=== PATIENT | female | born 1935 | race Native Hawaiian/Other Pacific Islander ===

== ENCOUNTER 2018-04-28 18:22 | Emergency (ER) | payer MEDICARE, OTHER ==
[2018-04-28 20:11] VITALS: RESP 18; O2SAT 100
[2018-04-28 20:19] LABS: BASO % 0.7 % (0.0-2.0); EOS # 0.2 K/uL (0.0-0.7); EOS % 3.2 % (0.0-4.0); HEMOGLOBIN 11.3 g/dL (12.0-16.0); LYMPH % 19.2 % (20.0-40.0); MEAN CELL VOLUME 91.2 fl (81.0-99.0); MEAN CORPUSCULAR HEMOGLOBIN 30.7 pg (27.0-31.0); MEAN CORPUSCULAR HGB CONC 33.7 g/dL (33.0-37.0); MEAN PLATELET VOLUME 8.4 fl (7.2-11.7); MONO # 0.5 K/uL (0.0-0.8); MONO % 9.7 % (0.0-10.0); NEUT # 3.4 K/uL (1.8-7.0); NEUT % 67.2 % (50.0-75.0); RBC 3.68 Mil/uL (3.80-5.20); RED CELL DISTRIBUTION WIDTH 12.8 % (11.5-14.5)
[2018-04-28 20:37] LABS: ALBUMIN 3.5 g/dL (3.5-5.0); ALT/SGPT 112 U/L (9-52); AST/SGOT 92 U/L (14-36); BLOOD UREA NITROGEN 16 mg/dl (7-17); CALCIUM 8.8 mg/dL (8.4-10.2); GFR NON-AFRICAN AMERICAN 53
--- NOTE | 2018-04-28 21:08 | ED PDOC ---
Syncope/Near Syncope/Dizziness Time Seen by Provider: 04/28/18 19:28 Chief Complaint (Nursing): Dizziness/Lightheaded Chief Complaint (Provider): Dizziness/Lightheaded History Per: Patient, Family History/Exam Limitations: no limitations Onset/Duration Of Symptoms: Hrs (3-4) Activity At Onset Of Symptoms: Standing Additional Complaint(s): 83 years old [place] female with history of hypertension and diabetes presents to ER for evaluation of dizziness onset 1 hour [employer]. Family report patient had an episode of unstable gait while [place] local [place]. They reports she became unsteady, favoring her left side. Family state that they sat patient down to rest but she still had some persistence of symptoms prompting ED visit. Patient denies any nausea, vomiting, headache, trouble speaking, focal weakness, chest pain or shortness of breath. PMD:Bill Valentino Past Medical History Reviewed: Historical Data, Nursing Documentation, Vital Signs Vital Signs: Last Vital Signs Temp 97.7 F 04/28/18 18:32 Pulse 65 04/28/18 20:10 Resp 18 04/28/18 20:10 BP 143/76 04/28/18 20:10 Pulse Ox 100 04/28/18 20:10 - Medical History PMH: Diabetes, HTN, Hypercholesterolemia Denies: HIV, Chronic Kidney Disease - Surgical History Surgical History: No Surg Hx - Family History Family History: States: Unknown Family Hx - Social History Current smoker - smoking cessation education provided: No Alcohol: None Drugs: Denies - Home Medications Home Medications: Ambulatory Orders Medication Instructions Recorded Alprazolam [Xanax] 0.25 mg PO Q12 #20 tab 06/10/15 Aspirin [Aspirin EC] 1 tab PO DAILY #0 ect 06/10/15 Atorvastatin [Lipitor] 1 tab PO DAILY #0 tab 06/10/15 Carvedilol [Coreg] 1 tab PO BID #0 tab 06/10/15 HCTZ/Losartan Potassium [Hyzaar 1 tab PO DAILY #0 tab 06/10/15 12.5 mg-50 mg] Lubiprostone [Amitiza] 1 cap PO BID #0 sgl 06/10/15 Metformin Hydrochloride [Metformin] 1 tab PO BID #0 tab 06/10/15 Nitroglycerin [Nitrostat] 1 tab SL PRN PRN #0 tab 06/10/15 - Allergies Allergies/Adverse Reactions: Allergies Allergy/AdvReac Type Severity Reaction Status Date / Time No Known Allergies Allergy Verified 06/09/15 00:52 Review of Systems ROS Statement: Except As Marked, All Systems Reviewed And Found Negative Cardiovascular: Negative for: Chest Pain Respiratory: Negative for: Shortness of Breath Gastrointestinal: Negative for: Nausea, Vomiting Neurological: Positive for: Dizziness (unsteady gait). Negative for: Weakness (focal), Headache Physical Exam - Reviewed Nursing Documentation Reviewed: Yes Vital Signs Reviewed: Yes - Physical Exam Appears: Positive for: Non-toxic, No Acute Distress Head Exam: Positive for: ATRAUMATIC, NORMOCEPHALIC Skin: Positive for: Normal Color, Warm, Dry Eye Exam: Positive for: Normal appearance, EOMI, PERRL Neck: Positive for: Normal, Painless ROM, Supple Cardiovascular/Chest: Positive for: Regular Rate, Rhythm. Negative for: Murmur Respiratory: Positive for: Normal Breath Sounds. Negative for: Wheezing Gastrointestinal/Abdominal: Positive for: Normal Exam, Soft. Negative for: Tenderness Back: Positive for: Normal Inspection. Negative for: L CVA Tenderness, R CVA Tenderness Extremity: Positive for: Normal ROM. Negative for: Pedal Edema, Swelling Neurologic/Psych: Positive for: Alert, Oriented (x3) - Laboratory Results Result Diagrams: 04/28/18 20:13 04/28/18 20:13 - ECG O2 Sat by Pulse Oximetry: 100 (RA) Pulse Ox Interpretation: Normal Medical Decision Making Medical Decision Making: Time: 1937 Initial Impression: 83 years old [place] female presents with episode of ataxia [employer]. Initial Plan: --Head CT --EKG --CMP --Troponin --Urine dipstick --CBC [address] FINDINGS: BRAIN No acute intraparenchymal hemorrhage. No mass lesion. No CT evidence for acute territorial infarct. No midline shift or extra-axial collections. Mild cortical atrophy, as demonstrated by diffuse VENTRICLES: No hydrocephalus. ORBITS: The orbits are unremarkable. SINUSES AND MASTOIDS: Mucosal thickening within the right side of the ethmoid air cells and right side of the sphenoid sinus. BONES: No fracture. SOFT TISSUES: Unremarkable. IMPRESSION: No acute intracranial abnormality. 23:10 -Labs showed no clinical significant abnormalities. Patient remained asymptomatic during the entire duration of ED visit. Patient is medically stable for discharge home. Diagnosis of transient gait disturbance. Patient advised to follow up with Dr. Valentino in x1-2 days and return to ED if symptoms persist or worsen. Scribe Attestation: Documented by Patricia Renee, acting as a scribe for Madhu Arredondo MD. Provider Scribe Attestation: All medical record entries made by the Scribe were at my direction and personally dictated by me. I have reviewed the chart and agree that the record accurately reflects my personal performance of the history, physical exam, medical decision making, and the department course for this patient. I have also personally directed, reviewed, and agree with the discharge instructions and disposition. Disposition - Clinical Impression Clinical Impression: Gait disturbance - Disposition Disposition: Routine/Home Disposition Time: 23:10 Condition: STABLE Forms: [employer] (Danish)
[2018-04-28 23:47] VITALS: BP 132/59; PULSE 60; TEMP 98.2
--- NOTE | 2018-04-29 09:44 | CT ---
Date of service: 04/28/2018 PROCEDURE: CT HEAD WITHOUT CONTRAST. HISTORY: dizziness COMPARISON: None available. TECHNIQUE: Axial computed tomography images were obtained through the head/brain without intravenous contrast. Radiation dose: Total exam DLP = 826.84 mGy-cm. This CT exam was performed using one or more of the following dose reduction techniques: Automated exposure control, adjustment of the mA and/or kV according to patient size, and/or use of iterative reconstruction technique. FINDINGS: HEMORRHAGE: No intracranial hemorrhage. BRAIN: No mass effect or edema. Minimal age-appropriate diffuse atrophy. Minimal chronic periventricular white matter ischemic change. No evidence of acute infarct. VENTRICLES: Unremarkable. No hydrocephalus. CALVARIUM: Unremarkable. PARANASAL SINUSES: Mild chronic sphenoid sinusitis. MASTOID AIR CELLS: Unremarkable as visualized. No inflammatory changes. OTHER FINDINGS: None. IMPRESSION: No intracranial mass, hemorrhage or evidence of acute infarct. Mild chronic sphenoid sinusitis. Otherwise unremarkable examination. The preliminary findings for this examination were reported by [facility] at 9:24 p.m. on 04/28/2018. There is concurrence of this report with the preliminary findings.
--- NOTE | 2018-04-29 11:05 | CARD ---
APPROVED REPORT Date of service: 04/28/2018 EKG Measurement Heart [id number] <Conclusion> Normal sinus rhythm Nonspecific T wave abnormality Abnormal ECG
== END 2018-04-28 23:47 | disposition home or self-care (01) ==
LOC: H.ER 18:22
DX: R26.89 Other abnormalities of gait and mobility (principal); E11.9 Type 2 diabetes mellitus without complications; E78.00 Pure hypercholesterolemia, unspecified; I10 Essential (primary) hypertension; Z79.84 Long term (current) use of oral hypoglycemic drugs; J32.3 Chronic sphenoidal sinusitis